=== PATIENT | male | born 1985 | race Caucasian/White ===

== ENCOUNTER 2016-12-09 18:09 | Emergency (ER) | payer SELFPAY ==
[~2016-12-09] VITALS: Ht 162.6 cm; Wt 54.9 kg
[~2016-12-09 18:09] MED LIST: ALBUTEROL SULF8.5 GM IH; AMOXICILLIN500 MG PO; ATARAX,VISTARIL25 MG PO; CLEOCIN300 MG PO; ENDOCET 5-3251 EACH PO; GUAIFENESIN WI120 ML PO; IBUPROFEN600 MG PO; KEFLEX500 MG PO; LITHIUM CARBON300 MG PO; LITHIUM CARBON600 MG PO; NAPROSYN500 MG PO; NAPROXEN500 MG PO; NO MEDS; NOHOMEMEDS; PERCOCET 5/31 TABLET PO; PREDNISONE20 MG PO; TESSALON200 MG PO; TRAMADOL HCL50 MG PO; ZOLOFT50 MG PO
[2016-12-09 18:33] LABS: HEMATOCRIT 46.1 % (38.0-50.0); MCH 30.1 PG (29.0-34.0); MCHC 34.9 G/DL (30.0-36.0); MCV 86.2 FL (86-99); MEAN PLAT.VOLUME 10.9 uM^3 (9.0-12.4); PLATELET COUNT 305 K/uL (156-360); RBC DIS.WIDTH-SD 40.1 % (39-53); RED BLOOD COUNT 5.35 M/uL (4.00-5.50); WHITE BLOOD COUNT 12.7 K/uL (4.1-10.2)
[2016-12-09 18:43] LABS: CHLORIDE 104 mEq/L (99-109); POTASSIUM 4.2 mEq/L (3.7-5.4); SODIUM 138 mEq/L (136-147)
[2016-12-09 18:45] LABS: GLUCOSE 96 mg/dL (70-99)
[2016-12-09 18:46] LABS: ANION GAP 13 MEQ/L (2-14)
[2016-12-09 18:49] LABS: GFR ESTIMATE (CALCULATED) > 59 mL/min/
[2016-12-09 18:50] LABS: UREA NITROGEN (BUN) 12 mg/dL (9-23)
[2016-12-09 18:54] LABS: TROP-I INTERPRETATION NEGATIVE; TROPONIN-I < 0.01 ng/mL (0.0-0.30)
[2016-12-09] MEDS ORDERED: MEDROL DOSEPAK4 MG PO (19:48)
[2016-12-09 20:18] VITALS: BP 134/88
== END 2016-12-09 20:23 | disposition home or self-care (01) ==
LOC: EME → EDBD 18:09 → EME 20:23
PROVIDERS: Physician Assistant
DX: R07.9 Chest pain, unspecified (principal); G89.29 Other chronic pain; J45.909 Unspecified asthma, uncomplicated; F17.200 Nicotine dependence, unspecified, uncomplicated
CPT/HCPCS: 71020; 80048; 84484; 85027; 93005; 94640; 99281; 99284; J8540

== ENCOUNTER 2017-02-07 17:03 | Emergency (ER) | payer SELFPAY ==
[~2017-02-07] VITALS: Ht 162.6 cm; Wt 68.1 kg
[~2017-02-07 17:03] MED LIST changes: +MEDROL DOSEPAK4 MG PO
[2017-02-07 17:06] VITALS: BP 143/89
[2017-02-07 20:34] LABS: HEMATOCRIT 52.1 % (38.0-50.0); MCH 30.5 PG (29.0-34.0); MCHC 34.4 G/DL (30.0-36.0); MCV 88.9 FL (86-99); MEAN PLAT.VOLUME 10.6 uM^3 (9.0-12.4); PLATELET COUNT 292 K/uL (156-360); RBC DIS.WIDTH-CV 12.7 % (11.8-14.6); RBC DIS.WIDTH-SD 41.8 % (39-53); RED BLOOD COUNT 5.86 M/uL (4.00-5.50); WHITE BLOOD COUNT 10.9 K/uL (4.1-10.2)
[2017-02-07 20:42] LABS: CHLORIDE 107 mEq/L (99-109)
[2017-02-07 20:43] LABS: POTASSIUM 4.6 mEq/L (3.7-5.4); SODIUM 140 mEq/L (136-147)
[2017-02-07 20:45] LABS: D-DIMER ELISA 0.19 mg/L FEU (< 0.57); GLUCOSE 113 mg/dL (70-99)
[2017-02-07 20:46] LABS: ANION GAP 9 MEQ/L (2-14)
[2017-02-07 20:47] LABS: TOTAL BILIRUBIN 0.6 mg/dL (0.0-1.0)
[2017-02-07 20:48] LABS: ALKALINE PHOSPHATASE 100 IU/L (3-129); GFR ESTIMATE (CALCULATED) > 59 mL/min/
[2017-02-07 20:50] LABS: UREA NITROGEN (BUN) 12 mg/dL (9-23)
[2017-02-07 20:55] LABS: TROP-I INTERPRETATION NEGATIVE; TROPONIN-I < 0.01 ng/mL (0.0-0.30)
[2017-02-07] MEDS ORDERED: NAPROSYN500 MG PO (23:53)
[2017-02-08 00:01] LABS: TROP-I INTERPRETATION NEGATIVE; TROPONIN-I < 0.01 ng/mL (0.0-0.30)
== END 2017-02-08 00:09 | disposition home or self-care (01) ==
LOC: EME 17:03
PROVIDERS: Physician Assistant
DX: R07.9 Chest pain, unspecified (principal); R00.1 Bradycardia, unspecified; F17.200 Nicotine dependence, unspecified, uncomplicated
CPT/HCPCS: 71020; 80053; 84484; 85027; 85379; 93005; 99281; 99284